=== PATIENT | female | born 1980 | race Caucasian/White ===

== ENCOUNTER 2016-09-08 15:42 | Emergency (ER) | payer OTHER ==
[2016-09-08 15:48] VITALS: BP 102/46; PULSE 67; RESP 16; TEMP 98.1; O2SAT 95
--- NOTE | 2016-09-08 18:08 | UCPHY ---
H & P Time Seen by Provider: 09/08/16 16:31 Patient Type: Established HPI/ROS: This patient sustained a laceration to her left 2nd finger tip while preparing dinner shortly prior to arrival with moderate pain and moderate bleeding. She reports no other associated injuries. No exacerbating factors except for relief of the bleeding from direct pressure. ROS: No difficulty moving the finger. No numbness or tingling. 5 point ROS is otherwise negative. Past Medical/Surgical History: Immunizations up today. Otherwise healthy Smoking Status: Never smoked Physical Exam: Physical Exam Vital signs are normal. General: No acute distress Eyes: Pupils equal and react to light. Extraocular motions are intact. Lungs: No respiratory distress. Cardiac: Brisk capillary refill is intact throughout. Pulses are 2+ and symmetric in the affected extremity. Skin: No rash or pallor. Extremities: Atraumatic normal except for left 2nd finger tip-1.5 cm full- thickness laceration oriented just Mendez to the distal nail bed wrapping around to the radial aspect of the distal phalanx. There is mild bleeding. Foreign bodies. No deep structure injuries. No bone exposure. Neuro: Alert no sensorimotor deficits to the affected digit. Constitutional: Initial Vital Signs Temperature (C) 36.7 C 09/08/16 15:46 Heart Rate 67 09/08/16 15:46 Respiratory Rate 16 09/08/16 15:46 Blood Pressure 102/46 L 09/08/16 15:46 O2 Sat (%) 95 09/08/16 15:46 O2 Delivery Mode Room Air Allergies/Adverse Reactions: No Known Allergies Allergy (Verified 05/24/13 12:33) Home Medications: Medication Instructions Recorded NK [No Known Home Meds] 09/08/16 MDM/Departure - MDM Procedures: Digital block: After verbal consent, using a 50 50 mix of 0.5% Marcaine 2% plain lidocaine, 27 gauge needle, chlorhexidine scrub under sterile conditions- 3 injections were administered to the base of the affected finger, 8 mL with good effect. Patient tolerated this well. There were no complications. The wound is 1.5 cm full-thickness. The wound was copiously irrigated with saline. The wound was explored for foreign bodies and none were found. The wound was prepped and draped in the normal sterile fashion. . The edges were reapproximated using 4 0 Prolene, P3 needle-5 running sutures with good hemostasis and cosmesis. The patient tolerated the procedure well. There were no complications. Patient is placed in tube gauze and counseled regarding suture care - Depart Disposition: Home, Routine, Self-Care Clinical Impression: Finger laceration Qualifiers: Encounter type: initial encounter Qualified Code(s): S61.219A - Laceration without foreign body of unspecified finger without damage to nail, initial encounter Condition: Good Instructions: Finger Laceration (ED) Additional Instructions: Diagnosis: Finger laceration Plan: Keep the wound clean and dry for the next 2 days. Then clean it daily with warm soapy water Return for suture removal in 10-12 days Ibuprofen and Tylenol as needed for pain. Return sooner for redness, discharge or other concerns for infection. Referrals: NONE *PRIMARY CARE P,. [Primary Care Provider] - As per Instructions - PQRS PQRS Measurement: NA
== END 2016-09-08 18:20 | disposition home or self-care (01) ==
LOC: CED 15:42
PROC: 0HQGXZZ Repair Left Hand Skin, External Approach (ICD-10-PCS; principal; 2016-09-08)
DX: S61.211A Laceration without foreign body of left index finger without damage to nail, initial encounter (principal); W26.9XXA Contact with unspecified sharp object(s), initial encounter
CPT/HCPCS: 12001-PO; 99213-PO; G0463-PO